=== PATIENT | female | born 1960 | race Asian ===

== ENCOUNTER 2016-11-20 09:32 | Emergency (ER) | payer SELFPAY ==
[~2016-11-20] VITALS: Ht 162.6 cm; Wt 70.3 kg
[2016-11-20] MEDS ORDERED: NKM (09:39)
[2016-11-20 10:14] VITALS: BP 143/74
[2016-11-20 10:48] LABS: BASOPHILS % (AUTO) 0.7 % (0.0-2.0); LYMPHOCYTES % (AUTO) 35.6 % (20.0-45.0); MEAN CORPUSCULAR HEMOGLOBIN 30.9 PG (27.0-31.0); MEAN CORPUSCULAR HGB CONC 34.5 G/DL (32.0-36.0); MEAN CORPUSCULAR VOLUME 90 FL (80-99); MEAN PLATELET VOLUME 7.4 FL (6.5-10.1); NEUTROPHILS % (AUTO) 56.7 % (45.0-75.0); PLATELET COUNT 228 K/UL (150-450); RED CELL DISTRIBUTION WIDTH 10.6 % (11.6-14.8); WHITE BLOOD COUNT 6.9 K/UL (4.8-10.8)
[2016-11-20 11:01] LABS: TROPONIN I < 0.30 ng/mL (<=0.30)
[2016-11-20 11:05] LABS: ALANINE AMINOTRANSFERASE 57 U/L (3-33); ALBUMIN/GLOBULIN RATIO 1.6 (1.0-2.7); ANION GAP 13 (5-15); ASPARTATE AMINO TRANSFERASE 53 U/L (5-40); CALCIUM 9.4 mg/dL (8.6-10.2); CARBON DIOXIDE 26 mEQ/L (20-30); CHLORIDE 104 mEQ/L (98-107); CREATININE 0.8 mg/dL (0.5-0.9); GLOMERULAR FILTRATION RATE > 60 mL/min (>60); HEMOLYSIS 11; POTASSIUM 3.8 mEQ/L (3.4-4.9); SODIUM 143 mEQ/L (135-145); TOTAL PROTEIN 7.1 g/dL (6.6-8.7)
[2016-11-20 11:15] LABS: CKMB < 1.5 ng/mL (< 3.8)
--- NOTE | 2016-11-20 11:43 | Emergency Room Report ---
History of Present Illness General Chief Complaint: Headache Source: Patient Present Illness HPI [id number] BIBEMS with "sudden weakness" and anxiety after phone call with her sister Patient visiting [place] from [facility]. Sister in [place] was mad she isnt visiting her there Patient going back to [facility] this week Also c/o red eye with headache since last night but denies loss of vision, change in vision. No history of CVA, MA Not on ASA, AC Denies chest pain, SOB, abd pain, extremity weakness No signs of acute CVA per EMS Allergies: Coded Allergies: No Known Allergies (Unverified , 11/20/16) Patient History Past Medical History: none Past Surgical History: none Pertinent Family History: none Social History: Denies: alcohol use, drug use, smoking Now: No Immunizations: UTD Reviewed Nursing Documentation: PMH: Agreed, PSxH: Agreed Nursing Documentation-PMH Past Medical History: No Stated History Review of Systems All Other Systems: negative except mentioned in HPI Physical Exam Vital Signs Date Time Temp Pulse Resp B/P Pulse Ox O2 Delivery O2 Flow Rate FiO2 11/20/16 09:33 97.9 86 16 166/92 98 Room Air Sp02 EP Interpretation: reviewed, normal General Appearance: normal inspection, well appearing, no apparent distress, alert, GCS 15, non-toxic Head: normocephalic, atraumatic Eyes: bilateral eye EOMI, bilateral eye PERRL, bilateral eye other - Right eye lateral spontaneous conjunctival hemorrage ENT: normal ENT inspection, hearing grossly normal, normal voice Neck: normal inspection, full range of motion, supple, no bony tend Respiratory: normal inspection, lungs clear, normal breath sounds, no respiratory distress, no retraction, no wheezing Cardiovascular #1: regular rate, rhythm, no edema Gastrointestinal: normal inspection, normal bowel sounds, non tender, soft, no guarding, no hernia Genitourinary: no CVA tenderness Musculoskeletal: normal inspection, back normal, normal range of motion, Catherine' s Sign negative Neurologic: normal inspection, alert, oriented x3, responsive, 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 Afebrile. Mild elevation In BP NIHSS 0. No focal weakness Not altered Labs: No leuks. H&H stable. ECG no ischemica CT head: No CVA or ICH Spontaneous conjunctival hem ?due to elevated BP Symptoms likely from stress/anxiety after tense discussion with family member Will followup with PMD this week in [place] Got copy of labs, CT head EKG Diagnostic Results Rate: normal Rhythm: NSR ST Segments: no acute changes ASA given to the pt in ED: No Rhythm Strip Diag. Results EP Interpretation: yes Rate: 65 Rhythm: NSR, no PVC's Chest X-Ray Diagnostic Results Chest X-Ray Diagnostic Results : Chest X-Ray Ordered: Yes # of Views/Limited/Complete: 1 View Indication: Other - weakness EP Interpretation: Yes Interpretation: no consolidation, no effusion, no pneumothorax, no acute cardiopulmonary disease Impression: No acute disease Interpreting ER Provider: Electronically signed by DR Palomo Last Vital Signs Date Time Temp Pulse Resp B/P Pulse Ox O2 Delivery O2 Flow Rate FiO2 11/20/16 10:14 97.9 67 16 143/74 98 Room Air Status: improved Disposition: HOME, SELF-CARE Condition: Improved Patient Instructions: Panic Attacks, [id number] Additional Instructions: - Follow up with your doctor when you go back to [place] M.D. Nov 20, 2016 11:43
[2016-11-20 11:46] VITALS: BP 139/76
[2016-11-20 12:08] VITALS: BP 139/76
--- NOTE | 2016-11-21 09:15 | Diagnostic Imaging Report ---
Indication: Altered mental status Technique: Continuous helical CT scanning of the head was performed without intravenous contrast material. Axial and coronal 5 mm sections were generated. Dose: Total Dose Length Product - DLP [address] Dose Index - CTDIvol(s) 70.38 mGy. Comparison:None. Findings: The ventricular system is normal in size and configuration. There is no shift of midline structures. No abnormal extra-axial fluid collections are noted. There is no evidence of intracerebral bleeding. No other abnormal high or low density areas are noted within the brain. Impression: Normal CT scan of the head without contrast material. The CT scanner at [facility] is accredited by the [employer] and the scans are performed using protocols designed to limit radiation exposure to as low as reasonably achievable to attain images of sufficient resolution adequate for diagnostic evaluation.
--- NOTE | 2016-11-23 07:56 | Cardiology Report ---
APPROVED REPORT EKG Measurement Heart [id number] DC [id number] Normal sinus rhythm Normal ECG
== END 2016-11-20 12:11 | disposition home or self-care (01) ==
LOC: EDBD 09:32 → EMR 09:50
DX: R53.1 Weakness (principal); H11.31 Conjunctival hemorrhage, right eye
CPT/HCPCS: 36415; 70450; 71010; 80053; 82550; 82553; 84484; 85025; 93005; 99283

== ENCOUNTER 2016-11-22 11:08 | Emergency (ER) | payer SELFPAY ==
[~2016-11-22] VITALS: Ht 154.9 cm; Wt 62.6 kg
[~2016-11-22 11:08] MED LIST: NKM
[2016-11-22 11:27] VITALS: BP 146/82
[2016-11-22] MEDS ORDERED: [UNRECOGNIZED DRUG - REMARK] (12:20)
--- NOTE | 2016-11-22 12:46 | Emergency Room Report ---
History of Present Illness General Chief Complaint: Headache Source: Patient, Family Member - who translates Present Illness HPI Patient presenting with complaints of malaise, neck discomfort, morning headache as well as some anxiety. She was seen here at this hospital 2 days ago for similar evaluation and evaluation of a spontaneous right some conjunctiva hemorrhage. She had negative CAT scan at that time without indication for bleed or mass effect or tumor. The patient is anxious do to a history of a older sister who had a brain tumor. The patient is Kiswahili spinning only and all history is through translation with her niece. Patient denies fevers chills cough dysuria chest pain or shortness of breath. Patient does feel weak and it's hard to get a bed. She has seen doctors in the past but has not been diagnosed or evaluated by a neurologist. They're planning on returning to [place] on Monday. They're asking for an MRI to rule out a brain tumor. Allergies: Coded Allergies: No Known Allergies (Unverified , 11/20/16) Patient History Limited by: language barrier Past Medical History: see triage record Social History: Denies: alcohol use, drug use, smoking Immunizations: UTD Reviewed Nursing Documentation: PMH: Agreed Nursing Documentation-PM Past Medical History: No Stated History Review of Systems Constitutional: Reports: malaise, weakness Cardiovascular: Denies: chest pain Gastrointestinal: Denies: abdominal pain Genitourinary: Denies: discharge Psychiatric: Denies: prior hx Neurological: Reports: headache, Denies: numbness, paresthesia, seizure, tingling Endocrine: Denies: excessive sweating All Other Systems: negative except mentioned in HPI Physical Exam Vital Signs Date Time Temp Pulse Resp B/P Pulse Ox O2 Delivery O2 Flow Rate FiO2 11/22/16 11:27 99.0 68 24 146/82 95 Room Air Sp02 EP Interpretation: reviewed, normal General Appearance: normal inspection, well appearing, no apparent distress, alert Head: atraumatic Eyes: right eye other - subconjunctival hemorrhage, no blood in interior chamber, bilateral eye normal inspection ENT: normal ENT inspection, hearing grossly normal, normal voice Neck: normal inspection, full range of motion, supple, no bony tend Respiratory: normal inspection, lungs clear, normal breath sounds, no respiratory distress, no retraction, no wheezing Cardiovascular #1: regular rate, rhythm, no edema Gastrointestinal: normal inspection, normal bowel sounds, non tender, soft, no guarding, no hernia Genitourinary: no CVA tenderness Musculoskeletal: normal inspection, back normal, normal range of motion Neurologic: normal inspection, alert, responsive, speech normal Psychiatric: normal inspection, judgement/insight normal, mood/affect normal Skin: normal inspection, normal color, no rash Medical Decision Making Diagnostic Impression: Primary Impression: Headache Additional Impression: Anxiety ER Course Patient is here with generalized complaints suggestive of anxiety as well as possible migraine symptoms. She had negative CAT scan 2 days ago. She has no history of significant hypertension or intracranial process. Her neurologic exam is within normal limits. I believe the subconjunctival hemorrhage as well as some family issues has led to increased stress and concerns. I believe mild medicines for anxiety as well as followup with her primary care and possibly neurologist is appropriate they can be as an outpatient. CT/MRI/US Diagnostic Results CT/MRI/US Diagnostic Results : Imaging Test Ordered: CT head reviewd from 11/20 Impression Procedure: CT Head no Contrast Indication: Altered mental status Technique: Continuous helical CT scanning of the head was performed without intravenous contrast material. Axial and coronal 5 mm sections were generated. Dose: Total Dose Length Product - DLP [address] Dose Index - CTDIvol(s) 70.38 mGy. Comparison:None. Findings: The ventricular system is normal in size and configuration. There is no shift of midline structures. No abnormal extra-axial fluid collections are noted. There is no evidence of intracerebral bleeding. No other abnormal high or low density areas are noted within the brain. Impression: Normal CT scan of the head without contrast material. Last Vital Signs Date Time Temp Pulse Resp B/P Pulse Ox O2 Delivery O2 Flow Rate FiO2 11/22/16 11:27 Room Air 11/22/16 11:27 99.0 68 24 146/82 95 Condition: Stable Scripts Lorazepam* (ATIVAN*) 0.5 Mg Tablet 0.5 MG ORAL BID for For Anxiety for 5 Days, #10 TAB Prov: Ruslan Godwin MD 11/22/16 Ruslan Godwin MD Nov 22, 2016 12:45
[2016-11-22] MEDS ORDERED: ATIVAN0.5 MG ORAL (12:48)
[2016-11-22 13:04] VITALS: BP 144/75
== END 2016-11-22 13:03 | disposition home or self-care (01) ==
LOC: EMR 12:15
DX: R51 Headache (principal); F41.9 Anxiety disorder, unspecified; R41.82 Altered mental status, unspecified; R53.1 Weakness
CPT/HCPCS: 99284